=== PATIENT | female | born 1960 | race African-American/Black ===

== ENCOUNTER 2017-02-27 13:49 | Emergency (ER) | payer MEDICAID, OTHER ==
[~2017-02-27] VITALS: Ht 175.3 cm; Wt 95.0 kg
[~2017-02-27 13:49] MED LIST: CALC667C4 PO; CINA30 PO; DILT-26 PO; DIPH25CA83 PO; DOCU-266 PO; LORA10TA7 PO; OXYC-100 PO
[2017-02-27 15:39] LABS: BASOPHILS % 0.6 % (0.0-2.0); EOSINOPHILS % 0.2 % (0.0-5.0); HEMATOCRIT. 35.3 % (36.0-48.0); HEMOGLOBIN. 11.9 g/dL (12.0-16.0); LYMPHOCYTES % 40.2 % (20.0-50.0); MEAN CORPUSCULAR VOLUME 101.1 fL (81.0-99.0); MEAN PLATELET VOLUME 8.4 fl (7.4-10.4); MONOCYTES % 12.6 % (2.0-8.0); NEUTROPHILS % 46.4 % (40.0-76.0); PLATELET 109 x1000/uL (130-400); RED BLOOD CELL COUNT 3.49 mill/uL (4.2-5.4); RED CELL DISTRIBUTION WIDTH 19.3 % (11.6-14.6)
[2017-02-27 15:44] LABS: PARTIAL THROMBOPLASTIN TIME 24.5 sec (23.4-31.0); PROTHROMBIN TIME 10.3 sec (9.4-11.6)
[2017-02-27 15:56] LABS: CARBON DIOXIDE 32 mEq/L (21-32); CHLORIDE 93 mEq/L (98-107); TROPONIN I 0.08 ng/mL (0.00-0.04)
[2017-02-27 18:20] VITALS: BP 127/64
== END 2017-02-27 19:02 | disposition home or self-care (01) ==
LOC: ER 15:17
DX: R53.1 Weakness (principal); F12.10 Cannabis abuse, uncomplicated; D64.9 Anemia, unspecified; I12.9 Hypertensive chronic kidney disease with stage 1 through stage 4 chronic kidney disease, or unspecified chronic kidney disease; N18.9 Chronic kidney disease, unspecified; Z99.2 Dependence on renal dialysis; Z90.710 Acquired absence of both cervix and uterus; Z98.51 Tubal ligation status; Z98.890 Other specified postprocedural states
CPT/HCPCS: 36415; 71010; 80053; 83690; 84484; 85025; 85610; 85730; 93005; 99285; Z7610

== ENCOUNTER 2017-09-06 11:09 | Emergency (ER) | payer OTHER ==
[~2017-09-06] VITALS: Ht 175.3 cm; Wt 91.0 kg
[2017-09-06 12:00] VITALS: BP 142/68
== END 2017-09-06 13:40 | disposition home or self-care (01) ==
LOC: ER 11:36
DX: Z11.1 Encounter for screening for respiratory tuberculosis (principal); I12.0 Hypertensive chronic kidney disease with stage 5 chronic kidney disease or end stage renal disease; N18.6 End stage renal disease; Z99.2 Dependence on renal dialysis
CPT/HCPCS: 71045; 99283

== ENCOUNTER 2018-08-12 10:03 | Emergency (ER) | payer MEDICAID, OTHER ==
[2018-08-12] VITALS (7 sets, daily range): BP systolic 138–146; BP diastolic 69–80
[~2018-08-12] VITALS: Ht 175.3 cm; Wt 96.0 kg
[2018-08-12 11:00] LABS: BASOPHILS % 0.3 % (0.0-2.0); EOSINOPHILS % 3.4 % (0.0-5.0); HEMATOCRIT. 33.4 % (36.0-48.0); HEMOGLOBIN. 11.1 g/dL (12.0-16.0); LYMPHOCYTES % 32.4 % (20.0-50.0); MEAN CORPUSCULAR VOLUME 96.2 fL (81.0-99.0); MEAN PLATELET VOLUME 7.6 fl (7.4-10.4); MONOCYTES % 7.4 % (2.0-8.0); NEUTROPHILS % 56.5 % (40.0-76.0); PLATELET 135 x1000/uL (130-400); RED BLOOD CELL COUNT 3.47 mill/uL (4.2-5.4); RED CELL DISTRIBUTION WIDTH 17.2 % (11.6-14.6)
[2018-08-12 11:04] LABS: CHLORIDE 103 mEq/L (98-107)
[2018-08-12 11:05] LABS: PROTHROMBIN TIME 10.7 sec (9.6-11.0)
[2018-08-12] MEDS ORDERED: CEFAZOLIN 1000MG PREMIX 50 ML IV ONE ×2 (11:15→12:57)
[2018-08-12 11:54] LABS: CLARITY URINE CLEAR (CLEAR); COLOR URINE YELLOW (YELLOW); KETONES URINE NEGATIVE (NEGATIVE); LEUKOCYTE ESTERASE URINE NEGATIVE (NEGATIVE); NITRITE URINE NEGATIVE (NEGATIVE); OCCULT BLOOD URINE 1+ (NEGATIVE); PH URINE 8.5 (4.5-8.0); PROTEIN URINE 2+ (NEGATIVE); SPECIFIC GRAVITY URINE 1.011 (1.005-1.030); UROBILINOGEN URINE 0.2 E.U./dL (0.2-1.0)
[2018-08-12] MEDS ORDERED: HEPARIN 1000 UNITS/ML 10ML ONE (12:56)
[2018-08-12] MEDS ORDERED: LIDOCAINE HCL 1% 20ML VIAL (Pyxis) INJ ONE (12:56)
[2018-08-12] MEDS ORDERED: SODIUM BICARBONATE 4% (2.4MEQ) 5ML VIAL IV ONE (12:56)
[2018-08-12] MEDS ORDERED: IOHEXOL-300 100 ML BOTTLE ONE (12:56)
[2018-08-12] MEDS ORDERED: FENTANYL CITRATE/PF 50MCG/ML 2ML VIAL ONE (12:57)
== END 2018-08-12 15:00 | disposition left against medical advice (07) ==
LOC: ER 10:03 → CANBEDREQ 16:23
DX: T82.41XA Breakdown (mechanical) of vascular dialysis catheter, initial encounter (principal); Y82.8 Other medical devices associated with adverse incidents; Y92.89 Other specified places as the place of occurrence of the external cause; I12.0 Hypertensive chronic kidney disease with stage 5 chronic kidney disease or end stage renal disease; N18.6 End stage renal disease; Z99.2 Dependence on renal dialysis; F12.90 Cannabis use, unspecified, uncomplicated
CPT/HCPCS: 36415; 36901; 71045; 80053; 81003; 85025; 85610; 93005; 96365; 99284; C1766; C1769; C1887; J0690; J1644; J3490; Q9967; Z7610; J3010; J7050